=== PATIENT | female | born 1990 | race Two or more races ===

== ENCOUNTER 2019-01-06 12:25 | Inpatient (IN) | payer OTHER ==
[2019-01-06] MEDS ORDERED: CITRIC ACID/SODIUM CITRATE 30 ML UNIT-DOSE CUP PO ONE (12:34)
--- NOTE | 2019-01-06 13:25 | HP ---
Past Medical History - Primary Care Physician PCP:: Pranav Gilliland - Admission Chief Complaint: New onsent hypertensive disorder of and IUGR History of Present Illness: Patient denies any CP, SOB, N/V, SHAIKH, vision changes, RUQ pain, LE edema. She reports +FM, no VB, no regular CTX. Patient has been followed for severe IUGR and developed mild range BPs in the office on 01/03/19. Patient continue to have mildly elevated BPs in the hospital that day as well as on 01/05/19 follow up. Patient presented today at [facility] and BP was 147/97 and she remains asymptomatic. BPs on admission at [facility]D are in the normal to mild range. History Source: Patient Limitations to Obtaining History: No Limitations - Past Medical History CLEAT FEEDER: No: Alzheimer's, CVA, Dementia, Migraine, Multiple Sclerosis, Peripheral Neuropathy, Parkinson's, Seizure, Syncope, TIA, Vertigo, Other Cardiovascular: No: AFIB, Aneurysm, Aortic Insufficiency, Aortic Stenosis, CAD, CHF, Deep Vein Thrombosis, HTN, Hyperlipdemia, PA, Mitral Insufficiency, Mitral Stenosis, Murmur, Pulmonary Hypertension, Other Pulmonary: No: Asthma, Bronchitis, Cancer, COPD, O2 Dependent, Pneumonia, Previously Intubated, Pulmonary Embolus, Pulmonary Fibrosis, Sleep Apnea, Other Gastrointestinal: No: Ascites, Cancer, Constipation, Crohn's Disease, Diverticulitis, Diverticulosis, Esophageal Varices, Gastritis, GERD, GI Bleed, Hemorrhoids, Hiatal Hernia, Inflamatory Bowel Disease, Irritable Bowel Disease, Pancreatitis, Peptic Ulcer Disease, Ulcerative Colitis, Other Hepatobiliary: No: Cirrhosis, Cholelithiasis, Cholecystitis, Choledocholithiasis , Hepatitis A, Hepatitis B, Hepatitis C, Other Renal/: No: Renal Failure, Renal Inusuff, BPH, Cancer, Hematuria, Hemodialysis , Neurogenic Bladder, Renal Calculi, UTI, Other Heme/Onc: No: Anemia, B12 Deficiency, Bleeding Disorder, Cancer, Current Chemotherapy, Current Radiation Therapy, Hemochromatosis, Hypercoaguable State, Myeloproliferative Synd, Sickle Cell Disease, Sickle Cell Trait, Thrombocytopenia, Other Infectious Disease: No: AIDS, C-Diff, Herpes Zoster, HIV, MRSA, STD's, Tuberculosis, VREF, Other Psych: No: Addictions, Anxiety, Bipolar, Depression, Panic, Psychosis, Schizophrenia, Other Musculoskeletal: No: Bursitis, Chronic low back pain, Hemiparesis, Hemiplegia, Osteoarthritis, Paraplegia, Other ENT: No: Allergic Rhinitis, Sinusitis, Other Endocrine: No: Smith's Disease, Parnell's Disease, Diabetes Insipidus, Diabetes Mellitus, Hyperparathyroidism, Hyperthyroidism, Hypothyroidism, Osteopenia, SIADH, Other Dermatology: No: Basal Cell, Cellulitis, Eczema, Melanoma, Psoriasis, Squamous Cell, Other - Past Surgical History Hx Myomectomy: No Hx Transabdominal Cerclage: No Additional Surgical History: previous C/S - Smoking History Smoking history: Never smoked - Alcohol/Substance Use Hx Alcohol Use: No History of Substance Use: reports: None - Social History History of Recent Travel: No Home Medications - Allergies Allergies/Adverse Reactions: Allergies Allergy/AdvReac Type Severity Reaction Status Date / Time No Known Allergies Allergy Verified 01/05/19 16:59 - Home Medications Home Medications: Ambulatory Orders Aspirin [Lo-Dose Aspirin EC] 81 mg PO DAILY 01/03/19 Pnv No.95/Ferrous Fum/Folic AC [ Vitamin Tablet] 1 each PO DAILY Review of Systems Findings/Remarks: unremarkable - Review of Systems Constitutional: reports: No Symptoms Eyes: reports: No Symptoms HENT: reports: No Symptoms Neck: reports: No Symptoms Cardiovascular: reports: No Symptoms Respiratory: reports: No Symptoms Gastrointestinal: reports: No Symptoms Genitourinary: reports: No Symptoms Breasts: reports: No Symptoms Reported Musculoskeletal: reports: No Symptoms Integumentary: reports: No Symptoms Neurological: reports: No Symptoms Endocrine: reports: No Symptoms Hematology/Lymphatic: reports: No Symptoms Psychiatric: reports: No Symptoms Physical Exam - Maternity Constitutional: Yes: Well Nourished HENT: Yes: Atraumatic Neck: Yes: Supple Cardiovascular: Yes: Regular Rate and Rhythm Lungs: Clear to auscultation Breast(s): Yes: Other (deferred) - Abdominal Exam/OB Number of Fetuses: Single Presentation: Vertex Contractions: No Monitor Mode: External Heart Rate (range): 130 Category: I Accelerations: Uniform Decelerations: None - Physical Exam Musculoskeletal: Yes: WNL Extremities: Yes: WNL Edema: Yes Edema: LLE: Trace, RLE: Trace Integumentary: Yes: WNL Deep Tendon Reflex Grade: Normal +2 ...Motor Strength: WNL Psychiatric: Yes: Alert, Oriented - Labs Lab Results: Previous labs reviewed Imaging - Results Ultrasound: Report Reviewed Assessment/Plan 28 y/o P1 @ 37.5wks, severe IUGR @ 4%, GHTN vs PEC w/o severe features, prior planned repeat C/S, prior H/O PEC S/P low dose aspirin. Indications for delivery as per ACOG guidelines explained to the patient. Risks and complications of the procedure reiterated. Informed consent obtained -Admit -Continuous monitoring and frequent BP checks -Proceed with CD in a non-scheduled urgent manner
[2019-01-06] MEDS: ELECTROLYTE-148 SOLN 1,000 ML IV SCH (14:00)
[2019-01-06 14:10] VITALS: BMI 23.8
--- NOTE | 2019-01-06 15:28 | PN ---
Progress Note (short form) - Note Progress Note: Conversation had with vegetable cook regarding the urgency of the case. She requested to wait due to patient eating. Attending notified of urgent case.
[2019-01-06] MEDS ORDERED: OXYTOCIN 10 UNITS/ML VIAL ONE ×2 (15:44→16:19)
[2019-01-06] MEDS ORDERED: morphine SULFATE/PF 0.5 MG/ML (2cc Syringe - QUVA) ONE (15:44)
[2019-01-06] MEDS ORDERED: ceFAZolin SODIUM 1 GM VIAL ONE (15:48)
[2019-01-06] MEDS: OXYTOCIN 20 UNITS in 0.9% NS 20 UNIT/1,000 ML INFUS.BAG IV SCH (16:20)
--- NOTE | 2019-01-06 17:02 | OP ---
Operative Note - Note: Operative Date: 01/06/19 (Dic#[id number]) Pre-Operative Diagnosis: Prior c/s, 37.5wks, IUGR, hypertensive disorder of Operation: RLTCS Findings: see dictation Post-Operative Diagnosis: Same as Pre-op Surgeon: Pranav Gilliland Anesthesia: Spinal Estimated Blood Loss (mls): 650 Drains, Volume Out (mls): 300 (clear urine) Fluid Volume Replaced (mls): 800 Operative Report Dictated: Yes
[2019-01-06] MEDS ORDERED: oxyCODONE HCL 5 MG TABLET PO PRN (17:05)
[2019-01-06] MEDS ORDERED: IBUPROFEN 600 MG TABLET (FP) PO PRN (17:05)
[2019-01-06] MEDS ORDERED: IBUPROFEN 800 MG/8 ML IJ IVPB ONE ×2 (18:31→18:50)
[2019-01-06] MEDS ORDERED: OXYTOCIN 20 UNITS in 0.9% NS 20 UNIT/1,000 ML INFUS.BAG IV ONE (19:28)
--- NOTE | 2019-01-06 20:11 | OP ---
DATE OF OPERATION: 01/06/2019 PREOPERATIVE DIAGNOSIS: A 28-year-old para 1 at 37 weeks of gestation, intrauterine growth retardation, hypertension disorder of consistent with preeclampsia without severe features desiring repeat section. POSTOPERATIVE DIAGNOSIS: A 28-year-old para 1 at 37 weeks of gestation, intrauterine growth retardation, hypertension disorder of consistent with preeclampsia without severe features desiring repeat section. PROCEDURE: Repeat low transverse section. ATTENDING: MD Wero Melendez PA ESTIMATED BLOOD LOSS: 650. INTRAVENOUS FLUIDS: 800 mL of crystalloid. URINE OUTPUT: 300 mL of clear urine. FINDINGS: Lower abdominal scar incision with prior section. Moderate amount of subcutaneous tissue and fibrotic tissue. Fascia was adherent to underlying rectus muscles. Rectus muscles fused to each other in the midline. No visible peritoneal adhesions. The bladder was slightly adherent to the lower uterine segment. Uterus was noted effaced. in cephalic presentation. Clear amniotic fluid. Loose nuchal cord x1. Bilateral tubes and ovaries, uterus consistent with normal anatomy. COMPLICATIONS: None. DESCRIPTION OF PROCEDURE: The patient was taken to the operating room where anesthesia was found to be adequate. She was then prepped and draped in the normal sterile fashion. A Williamson catheter was placed atraumatically. Pfannenstiel skin incision was made with a scalpel and carried to underlying fascia with the Bovie. The fascia was incised in the midline and incision extended laterally with sharp dissection. The underlying rectus muscles were dissected off sharply. Rectus muscles were elevated with Allis clamps and transected in the midline with the scalpel. Incidental entry to the peritoneal cavity revealed no visceral adhesions at the point of entry. The incision was extended superiorly and inferiorly with sharp dissection. Bladder blade was placed in the lower uterine segment as noted above. The lower uterine segment transverse incision was made with a scalpel and extended laterally with blunt dissection. Amniotomy revealed clear amniotic fluid. in cephalic presentation and delivered through the cervical incision with mild fundal pressure without difficulty. Loose nuchal cord removed. Umbilical cord was clamped after delay. was handed off to the NICU staff. Segment for gases and blood obtained. The placenta was delivered manually and intact. The uterus was exteriorized through the surgical incision and the hysterotomy incision was appreciated with 1-0 Polysorb locked running sutures. Excellent reapproximation with 1-layer suture. An additional [id number]-difag stitch on the left incisional corner required to neutralize mild oozing. Excellent hemostasis was noted. The uterus was internalized to the pelvic cavity, and gutter were cleared of all clot and debris. Inspection of the bladder dome and rectus muscle fascial interface was noted to be intact. No evidence of active bleeding or trauma. The fascial incision was approximated with 0 Polysorb running, nonlocked sutures. Excellent structure reapproximation achieved and confirmed by digital palpation by the surgeon. Subcutaneous tissues were copiously irrigated and bleeders neutralized with Bovie cautery. The skin incision was reapproximated with surgical staple. The patient tolerated the procedure well and is going to the recovery room in stable condition. Instrument count reported as correct x 2 by Nurse PAOLA SILVERIO MD [id number] MTDD
[2019-01-07] MEDS ORDERED: IBUPROFEN 800 MG/8 ML IJ IVPB PRN (05:58)
[2019-01-07 07:18] LABS: BASO % 0.3 % (0-2.0); EOS % 0.7 % (0-4.5); HEMATOCRIT 27.3 % (32.4-45.2); HEMOGLOBIN 9.2 GM/dL (10.7-15.3); MCHC 33.7 g/dl (32.0-36.0); MEAN PLT VOLUME 8.5 fl (7.5-11.1); MONO % 5.6 % (3.8-10.2); NEUT % 76.4 % (42.8-82.8); PLATELET COUNT 274 K/MM3 (134-434); RBC 3.17 M/mm3 (3.60-5.2); RDW 14.6 % (11.6-15.6); WHITE BLOOD COUNT 8.9 K/mm3 (4.0-10.0)
--- NOTE | 2019-01-07 08:24 | PN ---
Post Progress Note - Subjective Subjective: Patient is doing well, not yet ambulating, tolerating PO, lochia decreased, attempting to breast feed Post Day: 1 Type of Delivery: Repeat C/S Vital Signs: Vital Signs Temperature 98.4 F 01/07/19 06:43 Pulse Rate 80 01/07/19 06:43 Respiratory Rate 20 01/07/19 06:43 Blood Pressure 127/69 01/07/19 06:43 O2 Sat by Pulse Oximetry (%) 99 01/06/19 18:35 Breast Exam: Yes: Other (deferred) Uterus: Yes: Fundus Firm Incision: Yes: Dressing dry and intact, Jyotsna intact Abdomen/GI: Yes: Abdomen soft Lochia, amount: Moderate Extremities: Yes: Calves non-tender Activity: Ambulating - Labs Labs: CBC WBC 8.9 K/mm3 (4.0-10.0) 01/07/19 06:45 RBC 3.17 M/mm3 (3.60-5.2) L 01/07/19 06:45 Hgb 9.2 GM/dL (10.7-15.3) L 01/07/19 06:45 Hct 27.3 % (32.4-45.2) L D 01/07/19 06:45 MCV 86.0 fl (80-96) 01/07/19 06:45 MCH 29.0 pg (25.7-33.7) 01/07/19 06:45 MCHC 33.7 g/dl (32.0-36.0) 01/07/19 06:45 RDW 14.6 % (11.6-15.6) 01/07/19 06:45 Plt Count 274 K/MM3 (134-434) 01/07/19 06:45 MPV 8.5 fl (7.5-11.1) 01/07/19 06:45 Absolute Neuts (auto) 6.8 K/mm3 (1.5-8.0) 01/07/19 06:45 Neutrophils % 76.4 % (42.8-82.8) 01/07/19 06:45 Lymphocytes % 17.0 % (8-40) 01/07/19 06:45 Monocytes % 5.6 % (3.8-10.2) 01/07/19 06:45 Eosinophils % 0.7 % (0-4.5) 01/07/19 06:45 Basophils % 0.3 % (0-2.0) 01/07/19 06:45 Nucleated RBC % 0 % (0-0) 01/07/19 06:45 Assessment/Plan POD # 1 in stable condition, S/P RCS for IUGR and new onset GHTN, in stable condition -D/C Williamson -Continue PP/post-op care -Anticipate D/C home on POD # 3
[2019-01-07] MEDS ORDERED: ACETAMINOPHEN 325 MG TABLET (FP) PO PRN (08:50)
--- NOTE | 2019-01-07 10:17 | PN ---
Progress Note (short form) - Note Progress Note: Anesthesia Post Op Note Pt seen s/p spinal for c/section Pt awake alert denies h/a, n/v Pt reports good pain control + puritis - improved with treatment Williamson in situ VSS no apparent anesthesia complications Angelita Davis.
[2019-01-07] MEDS ORDERED: BISACODYL 10 MG SUPP.RECT RC PRN (17:05)
--- NOTE | 2019-01-08 08:29 | PN ---
Post Progress Note - Subjective Subjective: c/o pain max 7/10 voiding after pressing abdomen bm small done Post Day: 2 Type of Delivery: Repeat C/S Vital Signs: Vital Signs Temperature 98.4 F 01/07/19 20:47 Pulse Rate 87 01/07/19 20:47 Respiratory Rate 20 01/07/19 20:47 Blood Pressure 128/87 01/07/19 20:47 O2 Sat by Pulse Oximetry (%) 99 01/06/19 18:35 Selected Entries 01/07/19 01/07/19 14:00 18:00 Blood Pressure 127/79 127/76 Breast Exam: Yes: Soft, Other (pumping milk). No: Engorged Uterus: Yes: Fundus Firm, Fundus below umbilicus, Non-tender Incision: Yes: Jyotsna intact Abdomen/GI: Yes: Abdomen soft, Passing flatus, Tolerating PO (diet ). No: Abdominal Distention, Tender Lochia: Yes: Rubra Lochia, amount: Moderate Extremities: Yes: Calves non-tender Perineum: Yes: Intact Activity: Ambulating - Labs Labs: CBC WBC 8.9 K/mm3 (4.0-10.0) 01/07/19 06:45 RBC 3.17 M/mm3 (3.60-5.2) L 01/07/19 06:45 Hgb 9.2 GM/dL (10.7-15.3) L 01/07/19 06:45 Hct 27.3 % (32.4-45.2) L D 01/07/19 06:45 MCV 86.0 fl (80-96) 01/07/19 06:45 MCH 29.0 pg (25.7-33.7) 01/07/19 06:45 MCHC 33.7 g/dl (32.0-36.0) 01/07/19 06:45 RDW 14.6 % (11.6-15.6) 01/07/19 06:45 Plt Count 274 K/MM3 (134-434) 01/07/19 06:45 MPV 8.5 fl (7.5-11.1) 01/07/19 06:45 Absolute Neuts (auto) 6.8 K/mm3 (1.5-8.0) 01/07/19 06:45 Neutrophils % 76.4 % (42.8-82.8) 01/07/19 06:45 Lymphocytes % 17.0 % (8-40) 01/07/19 06:45 Monocytes % 5.6 % (3.8-10.2) 01/07/19 06:45 Eosinophils % 0.7 % (0-4.5) 01/07/19 06:45 Basophils % 0.3 % (0-2.0) 01/07/19 06:45 Nucleated RBC % 0 % (0-0) 01/07/19 06:45 Problem List - Problems (1) Status post section routine follow-up Code(s): Z39.2 - ENCOUNTER FOR ROUTINE FOLLOW-UP; Z98.891 - HISTORY OF UTERINE SCAR FROM PREVIOUS SURGERY Assessment/Plan stable plan ct po care , anemia counselled
[2019-01-08] MEDS ORDERED: FLU VACC QS2019-20(6MOS UP)/PF 60 MCG/0.5 ML SYRINGE IM ONE (10:00)
[2019-01-08] MEDS ORDERED: FLU VACCINE QUAD 60 MCG/0.5 ML (MDV 19-20) IM ONE (10:00)
[2019-01-08] MEDS: SIMETHICONE 80 MG TAB.CHEW (FP) PO PRN ×2 (11:19→19:46)
[2019-01-08] MEDS: OXYTOCIN 20 UNITS in 0.9% NS 20 UNIT/1,000 ML INFUS.BAG IV SCH (19:37)
[2019-01-08] MEDS: ELECTROLYTE-148 SOLN 1,000 ML IV SCH (19:37)
[2019-01-09 08:42] LABS: BASO % 0.3 % (0-2.0); EOS % 1.6 % (0-4.5); HEMATOCRIT 27.7 % (32.4-45.2); HEMOGLOBIN 9.4 GM/dL (10.7-15.3); LYMPH % 19.8 % (8-40); MCH 28.9 pg (25.7-33.7); MCHC 33.9 g/dl (32.0-36.0); MEAN CELL VOLUME 85.1 fl (80-96); MEAN PLT VOLUME 8.3 fl (7.5-11.1); MONO % 6.2 % (3.8-10.2); NEUT % 72.1 % (42.8-82.8); PLATELET COUNT 299 K/MM3 (134-434); RBC 3.25 M/mm3 (3.60-5.2); RDW 14.5 % (11.6-15.6); WHITE BLOOD COUNT 8.8 K/mm3 (4.0-10.0)
--- NOTE | 2019-01-09 08:56 | DS ---
Physical Examination Vital Signs: Vital Signs Temperature 98.1 F 01/08/19 22:00 Pulse Rate 74 01/08/19 22:00 Respiratory Rate 18 01/08/19 22:00 Blood Pressure 119/72 01/08/19 22:00 O2 Sat by Pulse Oximetry (%) 99 01/06/19 18:35 Constitutional: Yes: Well Nourished, No Distress, Calm Eyes: Yes: WNL, Conjunctiva Clear, EOM Intact HENT: Yes: WNL, Atraumatic, Normocephalic Neck: Yes: WNL, Supple, Trachea Midline Cardiovascular: Yes: WNL, Regular Rate and Rhythm Respiratory: Yes: WNL, Regular, CTA Bilaterally Gastrointestinal: Yes: WNL, Normal Bowel Sounds Musculoskeletal: Yes: WNL Extremities: Yes: WNL Edema: No Integumentary: Yes: WNL Neurological: Yes: WNL, Alert, Oriented ...Motor Strength: WNL Psychiatric: Yes: WNL Discharge Summary Problems reviewed: Yes Reason For Visit: REPEAT Current Active Problems Status post section routine follow-up (Acute) Hospital Course: Patient presented for Repeat C/S 04/13 [facility] She had an uncomplicated C/S She met all postop milestones She was discharged home on POD#3 M. MD Viji Condition: Stable - Instructions Diet, Activity, Other Instructions: Regular Diet Follow up in one week for an incision and blood pressure check Referrals: Leila Hallman MD [Staff Physician] - Pranav Gilliland MD [Staff Physician] - Disposition: HOME - Home Medications Comprehensive Discharge Medication List: Ambulatory Orders Aspirin [Lo-Dose Aspirin EC] 81 mg PO DAILY 01/03/19 Pnv No.95/Ferrous Fum/Folic AC [ Vitamin Tablet] 1 each PO DAILY Acetaminophen [Tylenol] 650 mg PO Q6H PRN #20 capsule 01/07/19 Ibuprofen 600 mg PO Q6H PRN #30 tablet 01/07/19 Oxycodone HCl 5 mg PO Q6H PRN #14 tablet MDD 5 01/07/19
[2019-01-09 14:29] VITALS: BP 108/69; PULSE 88; TEMP 98.4
--- NOTE | 2019-01-14 17:27 | PATH ---
Surgical Pathology Report Patient Name: BHUPENDRA QUAN [facility]. Rec. #: [id number] /Age/Gender: 1990 (Age: 28) / F Account: [id number] Location: [facility] OBS/CONTENT ENGINEER Taken: 01/06/2019 Received: 01/07/2019 Reported: 01/14/2019 Physicians: Pranav Gilliland MD Specimen(s) Received PLACENTA Clinical History , history of preeclampsia Final Diagnosis PLACENTA: THIRD TRIMESTER PLACENTA WITH TWO FOCI OF INFARCTION (0.6 CM AND 1CM IN GREATEST DIMENSION). TRIVASCULAR CORD. MEMBRANES WITH NO DIAGNOSTIC ABNORMALITIES. Electronically Signed Sheridan Sousa M.D. Gross Description The specimen is received fresh labeled placenta and is a 285 gram, 11.5 x 11.5 x 2.2 cm. placenta with attached membranes and umbilical cord. The attached membranes are diaz, translucent focal opacities and insert marginally. The umbilical cord measures 10.5 cm. in length and averages 0.9 cm. in diameter. The cord inserts eccentrically, 2.5 cm. to the nearest margin. No true knots or strictures are identified. Cut surface of the umbilical cord reveals 3 vessels. The surface is pelletier-blue with minimal fibrin deposition and appropriate caliber vessels. The maternal surface is red-brown and intact. Sectioning reveals 2 diaz intraparenchymal lesions measuring 0.6 and 1.0 cm in greatest dimension. The remaining placental parenchyma is red-brown and spongy. Clinic Lpn sections are submitted in 4 cassettes as follows: 1-membrane roll and umbilical cord; 2-3-lesions; 5-eqnc-toaelhmcu section of placenta. 01/13/2019 [facility]01/13/2019
== END 2019-01-09 14:30 | disposition home or self-care (01) | DRG 540 ==
LOC: JLDR 12:25 → J3W 20:10
PROVIDERS: ADMIT Student in an Organized Health Care Education/Training Program; ATTEND Student in an Organized Health Care Education/Training Program
PROC: 10D00Z1 Extraction of Products of Conception, Low, Open Approach (ICD-10-PCS; principal; 2019-01-06)
DX: O36.5930 Maternal care for other known or suspected poor fetal growth, third trimester, not applicable or unspecified (principal); O11.4 Pre-existing hypertension with pre-eclampsia, complicating childbirth; Z3A.37 37 weeks gestation of pregnancy; Z37.0 Single live birth
CPT/HCPCS: 36415; 36600; 82803; 85025; 88307-TC; 90686

== ENCOUNTER 2021-12-10 00:46 | Emergency (ER) | payer OTHER ==
[2021-12-10 01:15] VITALS: BP 122/80; PULSE 66; RESP 20; TEMP 97.8; BMI 29.5
[2021-12-10] MEDS ORDERED: ACETAMINOPHEN 1000 MG/100 ML BAG IVPB ONE (02:10)
[2021-12-10] MEDS ORDERED: METOCLOPRAMIDE HCL INJECTION 10 MG/2 ML VIAL IVPUSH ONE (02:10)
[2021-12-10] MEDS ORDERED: ACETAMINOPHEN INJECTION 100 ML IVPB ONE (02:12)
[2021-12-10] MEDS ORDERED: METOCLOPRAMIDE HCL INJECTION 10 MG/2 ML VIAL ONE (02:13)
[2021-12-10] MEDS ORDERED: SODIUM CHLORIDE 1,000 ML IV STA (03:05)
== END 2021-12-10 03:49 | disposition home or self-care (01) ==
LOC: JER 00:46
PROC: 3E033NZ Introduction of Analgesics, Hypnotics, Sedatives into Peripheral Vein, Percutaneous Approach (ICD-10-PCS; principal; 2021-12-10)
PROC: 3E033GC Introduction of Other Therapeutic Substance into Peripheral Vein, Percutaneous Approach (ICD-10-PCS; 2021-12-10)
PROC: 3E0337Z Introduction of Electrolytic and Water Balance Substance into Peripheral Vein, Percutaneous Approach (ICD-10-PCS; 2021-12-10)
DX: O21.0 Mild hyperemesis gravidarum (principal); R51.9 Headache, unspecified
CPT/HCPCS: 99283-25

== ENCOUNTER 2022-05-19 12:05 | Inpatient (IN) | payer OTHER ==
[2022-05-19] MEDS ORDERED: NIFEdipine 10 MG CAPSULE (FP) ONE (13:04)
[2022-05-19] MEDS ORDERED: MAGNESIUM 4GM/H20 - 4 GM/100 ML IVPB IVPB ONE (13:16)
[2022-05-19] MEDS ORDERED: CITRIC ACID/SODIUM CITRATE 30 ML UNIT-DOSE CUP PO ONE (13:44)
[2022-05-19] MEDS ORDERED: ELECTROLYTE-148 SOLN 1,000 ML IV SCH (13:45)
[2022-05-19 13:47] LABS: EOS % 0.7 % (0-4.5); HEMATOCRIT 35.7 % (32.4-45.2); HEMOGLOBIN 12.1 GM/dL (10.7-15.3); LYMPH % 27.3 % (8-40); MCHC 33.9 g/dl (32.0-36.0); MEAN CELL VOLUME 85.7 fl (80-96); MEAN PLT VOLUME 9.4 fl (7.5-11.1); MONO % 8.7 % (3.8-10.2); NEUT % 62.3 % (42.8-82.8); PLATELET COUNT 245 10^3/uL (134-434); RBC 4.17 M/mm3 (3.60-5.2); RDW 14.7 % (11.6-15.6); RETICULOCYTES 2.34 % (0.5-1.5); WHITE BLOOD COUNT 6.8 K/mm3 (4.0-10.0)
[2022-05-19 13:52] VITALS: BMI 31.1
[2022-05-19] MEDS: MAGNESIUM SULFATE 20GM/500ML - 20 GM/500 ML INFUS.BAG IVPB SCH (13:55)
[2022-05-19] MEDS ORDERED: MAGNESIUM SULFATE 20GM/500ML - 20 GM/500 ML INFUS.BAG ONE (13:56)
[2022-05-19 14:01] LABS: INR 0.91 (0.83-1.09); PROTHROMBIN TIME (PATIENT) 10.6 SEC (9.7-13.0)
[2022-05-19 14:03] LABS: CALCIUM 9.3 mg/dL (8.5-10.1)
[2022-05-19 14:04] LABS: ACTIVATED PTT 28.3 SECONDS (25.2-36.5); BLOOD UREA NITROGEN 11.7 mg/dL (7-18)
[2022-05-19 14:06] LABS: URIC ACID 4.4 mg/dL (2.6-7.2)
[2022-05-19 14:07] LABS: CREATININE 0.8 mg/dL (0.55-1.3)
[2022-05-19 14:08] LABS: EPI CELLS 24 /uL (0-25.1); HYALINE CASTS 1 /uL (0-3.1); URINE APPEARANCE CLEAR; URINE BACTERIA 475 /uL (0-1359); URINE BILIRUBIN NEGATIVE (NEGATIVE); URINE COLOR YELLOW; URINE GLUCOSE (UA) NEGATIVE (NEGATIVE); URINE KETONE NEGATIVE (NEGATIVE); URINE LEUK ESTERASE TRACE (NEGATIVE); URINE NITRITE NEGATIVE (NEGATIVE); URINE PROTEIN TRACE (NEGATIVE); URINE RBC 8 /uL (0-23.9); URINE UROBILINOGEN 0.2 mg/dL (0.2-1.0); URINE WBC 43 /uL (0-25.8)
[2022-05-19] MEDS ORDERED: IBUPROFEN 800 MG/8 ML IJ IVPB PRN (14:48)
[2022-05-19] MEDS ORDERED: LIGASURE IMPACT TP ONE (15:09)
[2022-05-19] MEDS ORDERED: NIFEdipine 10 MG CAPSULE (FP) PO ONE (15:13)
[2022-05-19] MEDS ORDERED: MAGNESIUM 4GM/H20 - 4 GM/100 ML IVPB IVPB SCH (15:15)
[2022-05-19] MEDS ORDERED: morphine SULFATE (PF) 1 MG/2 ML SYRINGE ONE (15:26)
[2022-05-19] MEDS ORDERED: OXYTOCIN 20 UNITS in 0.9% NS 20 UNIT/1,000 ML INFUS.BAG IV ONE (15:32)
[2022-05-19] MEDS: OXYTOCIN 20 UNITS in 0.9% NS 20 UNIT/1,000 ML INFUS.BAG IV SCH (16:50)
[2022-05-19] MEDS ORDERED: ONDANSETRON 4 MG/2 ML VIAL IVPUSH PRN (16:59)
[2022-05-19 17:17] LABS: CORD BASE EXCESS -2.8 mmol/L (0-2); CORD HCO3 23.7 mmHg (20-29); CORD pH 7.32 (7.14-7.44)
[2022-05-19 17:19] LABS: CORD BASE EXCESS -2.3 mmol/L (0-2); CORD PCO2 51.8 mmHg (30-78); CORD pH 7.301 (7.14-7.44)
[2022-05-19] MEDS ORDERED: LABETALOL HCL 100 MG TABLET (FP) ONE (17:22)
[2022-05-19] MEDS ORDERED: IBUPROFEN 800 MG/8 ML IJ IVPB ONE (18:17)
[2022-05-19] MEDS ORDERED: IBUPROFEN 600 MG TABLET (FP) PO ONE (21:55)
[2022-05-19] MEDS: IBUPROFEN 600 MG TABLET (FP) PO PRN (21:57)
[2022-05-19] MEDS: LABETALOL HCL 100 MG TABLET (FP) PO SCH (22:11)
[2022-05-20] MEDS ORDERED: MAGNESIUM SULFATE 20GM/500ML - 20 GM/500 ML INFUS.BAG ONE (02:19)
[2022-05-20] MEDS: MAGNESIUM SULFATE 20GM/500ML - 20 GM/500 ML INFUS.BAG IVPB SCH (02:20)
[2022-05-20] MEDS ORDERED: oxyCODONE HCL 5 MG TABLET PO PRN (02:48)
[2022-05-20 02:56] LABS: MAGNESIUM 5.2 mg/dL (1.8-2.4)
[2022-05-20] MEDS ORDERED: OXYTOCIN 20 UNITS in 0.9% NS 20 UNIT/1,000 ML INFUS.BAG IV ONE (06:21)
[2022-05-20] MEDS: OXYTOCIN 20 UNITS in 0.9% NS 20 UNIT/1,000 ML INFUS.BAG IV SCH (06:25)
[2022-05-20] MEDS: LABETALOL HCL 100 MG TABLET (FP) PO SCH ×3 (07:16→21:48)
[2022-05-20 09:38] LABS: BASO % 0.8 % (0-2.0); EOS % 1.4 % (0-4.5); HEMOGLOBIN 11.4 GM/dL (10.7-15.3); LYMPH % 23.1 % (8-40); MCH 28.8 pg (25.7-33.7); MCHC 33.6 g/dl (32.0-36.0); MEAN CELL VOLUME 85.7 fl (80-96); MEAN PLT VOLUME 9.2 fl (7.5-11.1); MONO % 7.4 % (3.8-10.2); NEUT % 67.3 % (42.8-82.8); PLATELET COUNT 223 10^3/uL (134-434); RBC 3.97 M/mm3 (3.60-5.2); RDW 14.8 % (11.6-15.6); WHITE BLOOD COUNT 7.9 K/mm3 (4.0-10.0)
[2022-05-20 10:10] LABS: MAGNESIUM 6.5 mg/dL (1.8-2.4)
[2022-05-20] MEDS ORDERED: OXYTOCIN 20 UNITS in 0.9% NS 20 UNIT/1,000 ML INFUS.BAG IV SCH (10:40)
[2022-05-20] MEDS: ENOXAPARIN NA (PORCINE) 40 MG/0.4 ML DISP.SYRIN SQ SCH (11:15)
[2022-05-20] MEDS: IBUPROFEN 600 MG TABLET (FP) PO PRN ×2 (13:25→21:51)
[2022-05-20] MEDS ORDERED: IBUPROFEN 600 MG TABLET (FP) PO ONE (13:27)
[2022-05-20] MEDS ORDERED: BISACODYL 10 MG SUPP.RECT RC PRN (14:48)
[2022-05-20] MEDS: SIMETHICONE 80 MG TAB.CHEW (FP) PO PRN (21:48)
[2022-05-21] MEDS: ENOXAPARIN NA (PORCINE) 40 MG/0.4 ML DISP.SYRIN SQ SCH (09:20)
[2022-05-21] MEDS: ACETAMINOPHEN 325 MG TABLET (FP) PO PRN ×2 (09:20→19:50)
[2022-05-21] MEDS: LABETALOL HCL 100 MG TABLET (FP) PO SCH ×2 (09:20→21:59)
[2022-05-21] MEDS: SIMETHICONE 80 MG TAB.CHEW (FP) PO PRN (22:01)
[2022-05-22] MEDS ORDERED: NIFEdipine 10 MG CAPSULE (FP) PO ONE (02:00)
[2022-05-22] MEDS ORDERED: NIFEdipine 10 MG CAPSULE (FP) ONE (02:22)
[2022-05-22 04:02] LABS: BASO % 0.4 % (0-2.0); EOS % 1.4 % (0-4.5); HEMATOCRIT 29.6 % (32.4-45.2); HEMOGLOBIN 9.9 GM/dL (10.7-15.3); LYMPH % 23.4 % (8-40); MCH 28.4 pg (25.7-33.7); MCHC 33.4 g/dl (32.0-36.0); MEAN CELL VOLUME 84.9 fl (80-96); MEAN PLT VOLUME 8.4 fl (7.5-11.1); MONO % 6.4 % (3.8-10.2); NEUT % 68.4 % (42.8-82.8); PLATELET COUNT 206 10^3/uL (134-434); RBC 3.48 M/mm3 (3.60-5.2); RDW 15.3 % (11.6-15.6); WHITE BLOOD COUNT 10.7 K/mm3 (4.0-10.0)
[2022-05-22 05:00] LABS: CALCIUM 8.7 mg/dL (8.5-10.1)
[2022-05-22 05:01] LABS: ALBUMIN 2.5 g/dl (3.4-5.0); BLOOD UREA NITROGEN 11.1 mg/dL (7-18)
[2022-05-22 05:04] LABS: CREATININE 0.8 mg/dL (0.55-1.3)
[2022-05-22 05:06] LABS: BILIRUBIN,TOTAL 0.4 mg/dL (0.2-1); TOT PROT 5.9 g/dl (6.4-8.2)
[2022-05-22 08:20] LABS: BASO % 0.4 % (0-2.0); EOS % 1.8 % (0-4.5); HEMATOCRIT 28.9 % (32.4-45.2); HEMOGLOBIN 9.7 GM/dL (10.7-15.3); LYMPH % 21.4 % (8-40); MCH 28.2 pg (25.7-33.7); MCHC 33.4 g/dl (32.0-36.0); MEAN CELL VOLUME 84.4 fl (80-96); MEAN PLT VOLUME 8.1 fl (7.5-11.1); MONO % 7.3 % (3.8-10.2); NEUT % 69.1 % (42.8-82.8); PLATELET COUNT 212 10^3/uL (134-434); RBC 3.43 M/mm3 (3.60-5.2); RDW 15.2 % (11.6-15.6)
[2022-05-22] MEDS: LABETALOL HCL 100 MG TABLET (FP) PO SCH ×2 (09:05→21:29)
[2022-05-22] MEDS: ENOXAPARIN NA (PORCINE) 40 MG/0.4 ML DISP.SYRIN SQ SCH (09:06)
[2022-05-22] MEDS: SIMETHICONE 80 MG TAB.CHEW (FP) PO PRN ×2 (14:27→19:37)
[2022-05-22] MEDS: IBUPROFEN 600 MG TABLET (FP) PO PRN (14:27)
[2022-05-22] MEDS: ACETAMINOPHEN 325 MG TABLET (FP) PO PRN (19:37)
[2022-05-22] MEDS ORDERED: LABETALOL HCL 100 MG TABLET (FP) PO ONE (23:26)
[2022-05-22] MEDS ORDERED: LABETALOL HCL 200 MG, LABETALOL HCL 100 MG PO ONE (23:30)
[2022-05-23] MEDS: ACETAMINOPHEN 325 MG TABLET (FP) PO PRN ×2 (00:54→19:41)
[2022-05-23] MEDS ORDERED: hydrALAZINE HCL 20 MG/ML VIAL IVPUSH ONE (01:15)
[2022-05-23] MEDS ORDERED: MAGNESIUM SULFATE 20GM/500ML - 20 GM/500 ML INFUS.BAG IV SCH (01:30)
[2022-05-23] MEDS ORDERED: MAGNESIUM 4GM/H20 - 4 GM/100 ML IVPB IVPB SCH (01:30)
[2022-05-23] MEDS ORDERED: hydrALAZINE HCL 20 MG/ML VIAL ONE (01:35)
[2022-05-23] MEDS: ELECTROLYTE-148 SOLN 1,000 ML IV SCH (01:45)
[2022-05-23] MEDS ORDERED: LABETALOL HCL 100 MG TABLET (FP) PO SCH (06:00)
[2022-05-23 08:57] LABS: MAGNESIUM 5.8 mg/dL (1.8-2.4)
[2022-05-23] MEDS: ENOXAPARIN NA (PORCINE) 40 MG/0.4 ML DISP.SYRIN SQ SCH (10:15)
[2022-05-23] MEDS: LABETALOL HCL 200 MG, LABETALOL HCL 100 MG PO SCH ×3 (14:00→19:45)
[2022-05-23] MEDS ORDERED: LABETALOL HCL 100 MG TABLET (FP) ONE ×2 (14:04→19:35)
[2022-05-23] MEDS ORDERED: MAGNESIUM SULFATE 20GM/500ML - 20 GM/500 ML INFUS.BAG ONE (15:47)
[2022-05-23] MEDS ORDERED: ACETAMINOPHEN 325 MG TABLET (FP) ONE (19:34)
[2022-05-23] MEDS ORDERED: MAGNESIUM SULFATE 20GM/500ML - 20 GM/500 ML INFUS.BAG IVPB SCH (19:45)
[2022-05-24] MEDS: LABETALOL HCL 200 MG, LABETALOL HCL 100 MG PO SCH ×3 (00:43→06:12)
[2022-05-24] MEDS ORDERED: LABETALOL HCL 100 MG TABLET (FP) ONE (03:21)
[2022-05-24] MEDS: ELECTROLYTE-148 SOLN 1,000 ML IV SCH (03:27)
[2022-05-24] MEDS: SIMETHICONE 80 MG TAB.CHEW (FP) PO PRN (03:58)
[2022-05-24] MEDS: ACETAMINOPHEN 325 MG TABLET (FP) PO PRN ×2 (03:58→21:41)
[2022-05-24 04:16] VITALS: RESP 18
[2022-05-24] MEDS: LABETALOL HCL 100 MG TABLET (FP) PO SCH ×3 (11:07→21:45)
[2022-05-24] MEDS: ENOXAPARIN NA (PORCINE) 40 MG/0.4 ML DISP.SYRIN SQ SCH (11:08)
[2022-05-24] MEDS ORDERED: NIFEdipine E.R. 30 MG TABLET PO SCH (16:00)
[2022-05-25 08:11] LABS: BASO % 0.9 % (0-2.0); EOS % 5.2 % (0-4.5); HEMATOCRIT 33.2 % (32.4-45.2); MCH 28.3 pg (25.7-33.7); MCHC 33.2 g/dl (32.0-36.0); MEAN CELL VOLUME 85.1 fl (80-96); MEAN PLT VOLUME 7.9 fl (7.5-11.1); MONO % 9.1 % (3.8-10.2); NEUT % 52.8 % (42.8-82.8); PLATELET COUNT 355 10^3/uL (134-434); RDW 15.4 % (11.6-15.6); WHITE BLOOD COUNT 5.7 K/mm3 (4.0-10.0)
[2022-05-25 08:41] LABS: CALCIUM 9.4 mg/dL (8.5-10.1)
[2022-05-25 08:44] LABS: CREATININE 0.9 mg/dL (0.55-1.3)
[2022-05-25 08:46] LABS: BILIRUBIN,TOTAL 0.7 mg/dL (0.2-1); TOT PROT 6.7 g/dl (6.4-8.2)
[2022-05-25 10:18] VITALS: TEMP 98.2
[2022-05-25] MEDS: LABETALOL HCL 100 MG TABLET (FP) PO SCH (10:42)
[2022-05-25] MEDS: ENOXAPARIN NA (PORCINE) 40 MG/0.4 ML DISP.SYRIN SQ SCH (10:43)
[2022-05-25 12:20] VITALS: BP 127/87; PULSE 93
== END 2022-05-25 12:45 | disposition home or self-care (01) | DRG 540 ==
LOC: JDEL 12:05 → JLDR 12:55 → J3W 05-20 13:54 → JLDR 05-23 01:30 → J3W 05-24 03:44
PROVIDERS: ADMIT Student in an Organized Health Care Education/Training Program; ATTEND Student in an Organized Health Care Education/Training Program
PROC: 10D00Z1 Extraction of Products of Conception, Low, Open Approach (ICD-10-PCS; principal; 2022-05-19)
PROC: 0UL70ZZ Occlusion of Bilateral Fallopian Tubes, Open Approach (ICD-10-PCS; 2022-05-19)
DX: O14.14 Severe pre-eclampsia complicating childbirth (principal); O60.14X0 Preterm labor third trimester with preterm delivery third trimester, not applicable or unspecified; Z3A.36 36 weeks gestation of pregnancy; O34.211 Maternal care for low transverse scar from previous cesarean delivery; Z30.2 Encounter for sterilization; Z37.0 Single live birth
CPT/HCPCS: 36415; 36600; 80048; 80053; 81003; 82570; 82803; 82977; 83010; 83615; 83735; 84156; 84450; 84460; 84550; 85025; 85045; 85384; 85610; 85730; 86780; 86850; 86900; 86901; 88302-TC; 88307-TC; 93005; 93010; C9803-CS; U0003; U0005

== ENCOUNTER 2022-06-10 18:48 | Emergency (ER) | payer OTHER ==
[2022-06-10 18:53] VITALS: RESP 18; TEMP 98.1; BMI 26.6
[2022-06-10] MEDS ORDERED: hydrALAZINE HCL 20 MG/ML VIAL IVPUSH ONE (19:07)
[2022-06-10] MEDS ORDERED: NITROGLYCERIN SUBLINGUAL 1/150 0.4 MG TAB SL ONE (19:08)
[2022-06-10] MEDS ORDERED: LABETALOL HCL 5 MG/1 ML (100MG/20 ML VIAL) IVPUSH ONE (19:10)
[2022-06-10] MEDS ORDERED: MAGNESIUM SULF 50% (8.12 MEQ/2 ML-1 GM VIAL) IVPB ONE ×2 (19:11→19:22)
[2022-06-10] MEDS ORDERED: hydrALAZINE HCL 20 MG/ML VIAL ONE (19:12)
[2022-06-10] MEDS ORDERED: NITROGLYCERIN SUBLINGUAL 1/150 0.4 MG TAB ONE (19:12)
[2022-06-10] MEDS ORDERED: MAGNESIUM SULFATE IN WATER 2 GM/50 ML IVPB IVPB ONE ×2 (19:12→20:52)
[2022-06-10] MEDS ORDERED: LABETALOL HCL 20 MG/4 ML VIAL ONE ×2 (19:14→19:25)
[2022-06-10] MEDS ORDERED: LACTATED RINGERS SOLUTION 1,000 ML/1,000 ML INFUS.BAG IV SCH (19:15)
[2022-06-10] MEDS ORDERED: ACETAMINOPHEN 1000 MG/100 ML BAG IVPB ONE (19:33)
[2022-06-10] MEDS ORDERED: LABETALOL HCL 200 MG TABLET (FP) PO ONE (19:34)
[2022-06-10 19:59] LABS: BASO % 0.6 % (0-2.0); EOS % 1.6 % (0-4.5); HEMATOCRIT 33.8 % (32.4-45.2); HEMOGLOBIN 11.3 GM/dL (10.7-15.3); LYMPH % 24.3 % (8-40); MCH 28.1 pg (25.7-33.7); MCHC 33.5 g/dl (32.0-36.0); MEAN CELL VOLUME 83.8 fl (80-96); MEAN PLT VOLUME 8.4 fl (7.5-11.1); MONO % 6.3 % (3.8-10.2); NEUT % 67.2 % (42.8-82.8); PLATELET COUNT 319 10^3/uL (134-434); RBC 4.04 M/mm3 (3.60-5.2); RDW 14.1 % (11.6-15.6); WHITE BLOOD COUNT 5.3 K/mm3 (4.0-10.0)
[2022-06-10 20:03] LABS: PROTHROMBIN TIME (PATIENT) 11.6 SEC (9.7-13.0)
[2022-06-10 20:06] LABS: ACTIVATED PTT 30.9 SECONDS (25.2-36.5)
[2022-06-10 20:15] LABS: CALCIUM 9.2 mg/dL (8.5-10.1)
[2022-06-10 20:16] LABS: ALBUMIN 3.5 g/dl (3.4-5.0); BLOOD UREA NITROGEN 9.5 mg/dL (7-18); MAGNESIUM 2.4 mg/dL (1.8-2.4)
[2022-06-10 20:19] LABS: CREATININE 0.8 mg/dL (0.55-1.3)
[2022-06-10 20:21] LABS: BILIRUBIN,TOTAL 0.8 mg/dL (0.2-1); TOT PROT 6.8 g/dl (6.4-8.2)
[2022-06-10] MEDS ORDERED: LABETALOL HCL 100 MG TABLET (FP) ONE (20:51)
[2022-06-10] MEDS ORDERED: ACETAMINOPHEN INJECTION 100 ML IVPB ONE (20:52)
[2022-06-10 21:13] LABS: PH,URINE 7.5 (5.0-8.0); URINE APPEARANCE CLEAR; URINE BILIRUBIN NEGATIVE (NEGATIVE); URINE COLOR YELLOW; URINE GLUCOSE (UA) NEGATIVE (NEGATIVE); URINE KETONE NEGATIVE (NEGATIVE); URINE LEUK ESTERASE NEGATIVE (NEGATIVE); URINE NITRITE NEGATIVE (NEGATIVE); URINE PROTEIN NEGATIVE (NEGATIVE); URINE UROBILINOGEN 0.2 mg/dL (0.2-1.0)
[2022-06-10 21:18] VITALS: BP 146/98; PULSE 72
[2022-06-10] MEDS ORDERED: METOCLOPRAMIDE HCL INJECTION 10 MG/2 ML VIAL IVPB ONE (21:25)
[2022-06-10] MEDS ORDERED: METOCLOPRAMIDE HCL INJECTION 10 MG/2 ML VIAL ONE (21:31)
== END 2022-06-10 23:00 | disposition home or self-care (01) ==
LOC: JER 18:48
PROC: 3E033NZ Introduction of Analgesics, Hypnotics, Sedatives into Peripheral Vein, Percutaneous Approach (ICD-10-PCS; principal; 2022-06-10)
PROC: 3E033GC Introduction of Other Therapeutic Substance into Peripheral Vein, Percutaneous Approach (ICD-10-PCS; 2022-06-10)
PROC: 3E033GC Introduction of Other Therapeutic Substance into Peripheral Vein, Percutaneous Approach (ICD-10-PCS; 2022-06-10)
PROC: 3E033GC Introduction of Other Therapeutic Substance into Peripheral Vein, Percutaneous Approach (ICD-10-PCS; 2022-06-10)
PROC: 3E033GC Introduction of Other Therapeutic Substance into Peripheral Vein, Percutaneous Approach (ICD-10-PCS; 2022-06-10)
PROC: 3E033GC Introduction of Other Therapeutic Substance into Peripheral Vein, Percutaneous Approach (ICD-10-PCS; 2022-06-10)
DX: O15.2 Eclampsia complicating the puerperium (principal); R51.9 Headache, unspecified; Z20.822 Contact with and (suspected) exposure to COVID-19
CPT/HCPCS: 0241U-QW; 36415; 70450-TC; 80053; 81003; 83735; 84443; 85025; 85610; 85730; 87086; 93005; 93010; 99285-25